=== PATIENT | male | born 2000 | race Caucasian/White ===

== ENCOUNTER 2020-02-26 00:33 | Emergency (ER) | payer MEDICAID ==
[~2020-02-26] VITALS: Ht 175.3 cm; Wt 77.1 kg
[2020-02-26 00:44] VITALS: Ht 175.3 cm; Wt 77.1 kg
[2020-02-26 02:26] VITALS: BP 127/69
== END 2020-02-26 02:26 | disposition home or self-care (01) ==
LOC: ED 00:33
DX: S01.01XA Laceration without foreign body of scalp, initial encounter (principal); Y04.8XXA Assault by other bodily force, initial encounter; Y93.89 Activity, other specified; Y92.89 Other specified places as the place of occurrence of the external cause; Y99.8 Other external cause status